=== PATIENT | male | born 1965 | race Native Hawaiian/Other Pacific Islander ===

== ENCOUNTER 2016-12-08 02:38 | Emergency (ER) | payer OTHER ==
[~2016-12-08] VITALS: Ht 185.4 cm; Wt 113.4 kg
[2016-12-08 03:34] LABS: PLATELET COUNT 403 K/uL (142-355)
[2016-12-08 03:37] LABS: POTASSIUM 3.5 mmol/L (3.6-5.2); SODIUM 133 mmol/L (136-145)
[2016-12-08 04:58] VITALS: BP 162/92; TEMP 98
== END 2016-12-08 05:00 | disposition home or self-care (01) ==
LOC: ED 02:38
PROVIDERS: Specialist
DX: K27.9 Peptic ulcer, site unspecified, unspecified as acute or chronic, without hemorrhage or perforation (principal); F10.10 Alcohol abuse, uncomplicated; B96.81 Helicobacter pylori [H. pylori] as the cause of diseases classified elsewhere
CPT/HCPCS: 36415; 80053; 80320; 81000; 82150; 83690; 85027; 86318; 96361; 96374; 96375; 99284; J2175; J2405; J2550; J3490

== ENCOUNTER 2019-09-18 20:11 | Emergency (ER) | payer OTHER ==
[~2019-09-18] VITALS: Ht 185.4 cm; Wt 112.5 kg
[2019-09-18 20:22] VITALS: TEMP 98.3
[2019-09-18 21:21] LABS: PLATELET COUNT 354 K/uL (142-355)
[2019-09-18 21:27] LABS: POTASSIUM 3.9 mmol/L (3.6-5.2); SODIUM 139 mmol/L (136-145)
[2019-09-18 22:06] VITALS: BP 144/78
== END 2019-09-18 22:09 | disposition home or self-care (01) ==
LOC: ED 20:11
PROVIDERS: Family Medicine
DX: R55 Syncope and collapse (principal); F12.10 Cannabis abuse, uncomplicated; F19.10 Other psychoactive substance abuse, uncomplicated; F41.8 Other specified anxiety disorders
CPT/HCPCS: 80053; 80307; 80320; 80329; 81000; 84484; 85027; 93005; 99283

== ENCOUNTER 2019-10-02 18:29 | Emergency (ER) | payer OTHER ==
[~2019-10-02] VITALS: Ht 185.4 cm; Wt 112.5 kg
[2019-10-02 18:55] VITALS: BP 133/72; TEMP 98.8
== END 2019-10-02 21:21 | disposition home or self-care (01) ==
LOC: ED 18:29
PROC: 0HQ5XZZ Repair Chest Skin, External Approach (ICD-10-PCS; principal; 2019-10-02)
DX: S21.112A Laceration without foreign body of left front wall of thorax without penetration into thoracic cavity, initial encounter (principal); W40.9XXA Explosion of unspecified explosive materials, initial encounter
CPT/HCPCS: 90471; 90715; 99283; J7040